=== PATIENT | female | born 1980 | race Two or more races ===

== ENCOUNTER → 2024-05-18 | Outpatient (CLI) | payer MEDICAID, SELFPAY ==
--- NOTE | 2024-05-18 14:15 | XR_ITS ---
Examination: Diagnostic digital mammography, bilateral Computer aided detection 3-D breast Tomosynthesis, bilateral Date and time of exam: May 18, 2024 1444 hours INDICATIONS: History BI-RADS 4 suspicious nodule 3:00 position left breast on left breast sonogram February 15, 2023 Technique: Nonmagnified MLO, CC views of the breasts to been obtained, reconstructed from 3-D Tomosynthesis images. R2 computer aided detection program utilized for evaluation of suspicious masses and/or abnormal calcifications. 3-D Tomosynthesis images obtained. Findings: The breasts are heterogeneously dense, which may obscure small masses Bilateral breast biopsy markers Nodular asymmetry 5 mm upper inner left breast posterior depth Impression: BI-RADS Category 0: Incomplete: Need additional imaging evaluation 5 mm nodular asymmetry upper inner left breast posterior depth, recommend follow-up spot tomographic views of this asymmetry Follow-up bilateral breast sonography is needed to compare with the February 15, 2023 exam.
== END | disposition home or self-care (01) ==
LOC: CDIM 14:19
PROVIDERS: Referring Provider Obstetrics & Gynecology; Visit Provider Obstetrics & Gynecology
DX: R92.8 Other abnormal and inconclusive findings on diagnostic imaging of breast (principal); N64.89 Other specified disorders of breast
CPT/HCPCS: 77062; 77066; G0279

== ENCOUNTER → 2024-07-06 | Outpatient (CLI) | payer MEDICAID, SELFPAY ==
--- NOTE | 2024-07-06 13:00 | XR_ITS ---
Examination: Breast ultrasound complete, bilateral Date and time of exam: July 06, 2024 1350 hours INDICATIONS: Mammogram May 18, 2024 5 mm nodular asymmetry upper inner left breast posterior depth Technique: Real-time grayscale ultrasonographic imaging bilateral breasts, including all 4 quadrants as well as nipple retroareolar and axillary regions. Findings: Sonographic images right breast 12:00 nodule circumscribed 5 x 6 mm 12:00 nodule circumscribed 10 x 7 mm 7:00 nodule circumscribed 6 x 4 mm 10:00 nodule with breast biopsy marker 17 x 12 mm 10:00 nodule circumscribed 7 x 6 mm Sonographic images left breast Benign cyst 3:00 nodule with breast biopsy marker lobular margins 11 x 10 mm 3:00 nodule circumscribed 6 x 7 mm 4:00 nodule circumscribed 7 x 8 mm IMPRESSION: BI-RADS Category 3: Probably benign findings. One additional 6 month bilateral breast sonography follow-up is needed to document stability of multiple solid nodules described above
--- NOTE | 2024-07-06 14:30 | XR_ITS ---
Examination: Diagnostic digital mammography, unilateral, left Computer aided detection 3-D breast Tomosynthesis, unilateral Date and time of exam: July 06, 2024 1417 hours INDICATIONS: Mammogram May 18, 2024 5 mm nodular asymmetry upper inner left breast posterior depth Technique: Nonmagnified MLO, CC views of the left breast have been obtained, reconstructed from 3-D Tomosynthesis images. R2 computer aided detection program utilized for evaluation of suspicious masses and/or abnormal calcifications. 3-D Tomosynthesis images obtained. Findings: The breast is heterogeneously dense, which may obscure small masses Nodule remains adjacent to breast biopsy marker upper left breast on the spot compression MLO view Impression: BI-RADS category 3: Probably benign findings One additional 6 month left mammogram follow-up is needed Please see the bilateral breast sonography report today recommending 6 month bilateral breast sonography follow-up
== END | disposition home or self-care (01) ==
PROVIDERS: PCP Obstetrics & Gynecology; Referring Provider Obstetrics & Gynecology; Visit Provider Obstetrics & Gynecology
DX: R92.333 Mammographic heterogeneous density, bilateral breasts (principal); N63.25 Unspecified lump in the left breast, overlapping quadrants; N63.15 Unspecified lump in the right breast, overlapping quadrants; N63.23 Unspecified lump in the left breast, lower outer quadrant; N63.13 Unspecified lump in the right breast, lower outer quadrant; N63.11 Unspecified lump in the right breast, upper outer quadrant
CPT/HCPCS: 76641; 77061; 77065; G0279

== ENCOUNTER → 2025-03-27 | Outpatient (CLI) | payer MEDICAID, SELFPAY ==
--- NOTE | 2025-03-27 10:15 | XR_ITS ---
Examination: Diagnostic digital mammography, unilateral, left Computer aided detection 3-D breast Tomosynthesis, unilateral Date and time of exam: 03/27/2025, 10:38 a.m. Comparisons: January 2022 through June 2024 Indications: Short interval follow-up of probably benign nodule adjacent to post biopsy marker clip Technique: Nonmagnified MLO, CC views of the left breast have been obtained, reconstructed from 3-D Tomosynthesis images. R2 computer aided detection program utilized for evaluation of suspicious masses and/or abnormal calcifications. 3-D Tomosynthesis images obtained. Technologist: Findings: The breasts are heterogeneously dense, which may obscure small masses. 8 mm oval circumscribed mass posterior lateral breast slightly anterior to the postbiopsy marker clip. No evidence of suspicious calcifications Impression: Probably benign 8 mm oval circumscribed mass posterior lateral right breast. 6-month mammogram and ultrasound follow-up is recommended. BI-RADS category 3: Probably benign, short term follow-up
--- NOTE | 2025-03-27 10:30 | XR_ITS ---
Examination: Breast ultrasound complete, bilateral Date and time of exam: March 27, 2025, 1051 hours INDICATIONS: History left breast biopsy 3 o'clock position, breast sonogram July 06, 2024 left breast 2:00 nodule with breast biopsy marker 11 x 10 mm, 3:00 nodule circumscribed 6 x 7 mm 4:00 nodule circumscribed 7 x 8 mm Technique: Real-time grayscale ultrasonographic imaging bilateral breasts, including all 4 quadrants as well as nipple retroareolar and axillary regions. Findings: Sonographic images right breast 12:00 nodule circumscribed 8 x 9 mm 12:00 nodule circumscribed 6 x 6 mm 3:00 nodule circumscribed 6 x 5 mm 11:00 nodule circumscribed 8 x 7 mm 10:00 nodule with breast biopsy marker 11 x 11 mm 10:00 cyst 4 x 5 mm Retroareolar cyst 4 x 4 mm Sonographic images left breast 12:00 cyst 9 x 11 mm 3:00 nodule circumscribed 8 x 7 mm 3:00 cyst 6 x 6 mm IMPRESSION: BI-RADS Category 3: Probably benign findings Recommend 1 additional 6-month bilateral breast sonography follow-up to document stability of multiple nodules described above
== END | disposition home or self-care (01) ==
PROVIDERS: PCP Obstetrics & Gynecology; Referring Provider Obstetrics & Gynecology; Visit Provider Obstetrics & Gynecology
DX: R92.331 Mammographic heterogeneous density, right breast (principal); N63.25 Unspecified lump in the left breast, overlapping quadrants; N63.15 Unspecified lump in the right breast, overlapping quadrants; N63.11 Unspecified lump in the right breast, upper outer quadrant
CPT/HCPCS: 76641; 77061; 77065; G0279